=== PATIENT | male | born 1940 | race Caucasian/White ===

== ENCOUNTER 2020-08-07 09:41 | Emergency (ER) | payer OTHER ==
[2020-08-07 09:58] VITALS: BMI 25.6
[2020-08-07 10:57] LABS: BASO % 0.6 % (0-2.0); EOS % 0.2 % (0-4.5); HEMATOCRIT 36.3 % (35.4-49); HEMOGLOBIN 12.2 GM/dL (11.7-16.9); LYMPH % 6.6 % (8-40); MCH 34.1 pg (25.7-33.7); MCHC 33.7 g/dl (32.0-35.9); MEAN PLT VOLUME 8.3 fl (7.5-11.1); MONO % 8.8 % (3.8-10.2); NEUT % 83.8 % (42.8-82.8); PLATELET COUNT 223 10^3/uL (134-434); RBC 3.59 M/mm3 (4.00-5.60); RDW 12.9 % (11.9-15.9); WHITE BLOOD COUNT 7.4 K/mm3 (4.0-10.0)
[2020-08-07 11:18] LABS: BLOOD UREA NITROGEN 26.4 mg/dL (7-18); CALCIUM 8.6 mg/dL (8.5-10.1)
[2020-08-07 11:19] LABS: ALBUMIN 3.6 g/dl (3.4-5.0); MAGNESIUM 2.1 mg/dL (1.8-2.4)
[2020-08-07 11:21] LABS: CREATININE 1.8 mg/dL (0.55-1.3)
[2020-08-07 11:22] LABS: PHOSPHOROUS 3.1 mg/dL (2.5-4.9)
[2020-08-07 11:23] LABS: TOT PROT 8.1 g/dl (6.4-8.2)
[2020-08-07 11:25] LABS: BILIRUBIN,TOTAL 0.5 mg/dL (0.2-1)
[2020-08-07 13:55] VITALS: BP 142/70; PULSE 85; TEMP 98.4
[2020-08-08 10:10] LABS: SARS-CoV-2 NAA Not Detected (Not Detected)
== END 2020-08-07 13:57 | disposition home or self-care (01) ==
LOC: JER 09:41
DX: R50.9 Fever, unspecified (principal); Z11.52 Encounter for screening for COVID-19
CPT/HCPCS: 36415; 80053; 83735; 84100; 85025; 87040; 87804; 99283-25; C9803; U0003; U0005